=== PATIENT | male | born 1995 | race Two or more races ===

== ENCOUNTER → 2019-12-08 | Emergency (ER) | payer SELFPAY | END | disposition left against medical advice (07) | LOC: ER 23:11 | DX: R06.02 Shortness of breath (principal); R05 Cough; Z53.21 Procedure and treatment not carried out due to patient leaving prior to being seen by health care provider ==

== ENCOUNTER 2021-03-12 23:20 | Emergency (ER) | payer SELFPAY ==
[~2021-03-12] VITALS: Ht 162.6 cm; Wt 83.9 kg
[2021-03-13 03:41] LABS: Alcohol, Urine < 3.0 mg/dL (0-10); Amphetamine Screen, Urine POSITIVE (NEGATIVE); Barbiturate Scree,Urine NEGATIVE (NEGATIVE); Benzodiazephine Screen, Urine NEGATIVE (NEGATIVE); Cannabinoid Screen, Urine NEGATIVE (NEGATIVE); Cocaine Screen, Urine NEGATIVE (NEGATIVE); Opiate Scree,Urine NEGATIVE (NEGATIVE); Phencyclidine Screen, Urine NEGATIVE (NEGATIVE)
[2021-03-13 03:59] VITALS: BP 148/98
== END 2021-03-13 06:45 | disposition home or self-care (01) ==
LOC: ER 23:20
DX: S20.461A Insect bite (nonvenomous) of right back wall of thorax, initial encounter (principal); E66.9 Obesity, unspecified; F15.10 Other stimulant abuse, uncomplicated; Z68.31 Body mass index [BMI] 31.0-31.9, adult; W57.XXXA Bitten or stung by nonvenomous insect and other nonvenomous arthropods, initial encounter; Y93.89 Activity, other specified; Y92.89 Other specified places as the place of occurrence of the external cause; Y99.8 Other external cause status
CPT/HCPCS: 80307

== ENCOUNTER 2023-06-20 22:06 | Emergency (ER) | payer MEDICAID ==
[~2023-06-20] VITALS: Ht 165.1 cm; Wt 99.0 kg
[2023-06-20 22:18] VITALS: PULSE 132; RESP 18; TEMP 98.4; O2SAT 98
[2023-06-20] MEDS ORDERED: FLUORESCEIN SOD OPTH TEST STRIP RIGHTEYE ONE (23:15)
[2023-06-21 00:15] VITALS: BP 164/102; PULSE 102; RESP 12; O2SAT 97
[2023-06-21] MEDS ORDERED: CIPROFLOXACIN 0.3%OPTH(EYE) SOL 5ML RIGHTEYE ONE (00:15)
[2023-06-21] MEDS ORDERED: CIPR0.3S67 OP (00:25)
[2023-06-21] MEDS ORDERED: ERYTHROMY OPTH OINT 5mg/gm 1gm or 3.5gm tube OP ONE (00:30)
== END 2023-06-21 00:37 | disposition home or self-care (01) ==
LOC: ER 22:10
DX: S05.31XA Ocular laceration without prolapse or loss of intraocular tissue, right eye, initial encounter (principal); Z87.891 Personal history of nicotine dependence; X58.XXXA Exposure to other specified factors, initial encounter; Y93.89 Activity, other specified; Y92.89 Other specified places as the place of occurrence of the external cause; Y99.8 Other external cause status
CPT/HCPCS: 70480

== ENCOUNTER 2025-03-06 18:39 | Emergency (ER) | payer MEDICAID ==
[~2025-03-06 18:39] MED LIST: CIPR0.3S67 OP
== END 2025-03-06 18:53 | disposition left against medical advice (07) ==
LOC: ER 18:53
DX: Z00.00 Encounter for general adult medical examination without abnormal findings (principal); Z53.21 Procedure and treatment not carried out due to patient leaving prior to being seen by health care provider; Y08.89XA Assault by other specified means, initial encounter; Y93.89 Activity, other specified; Y92.89 Other specified places as the place of occurrence of the external cause; Y99.8 Other external cause status